=== PATIENT | female | born 1970 | race Caucasian/White ===

== ENCOUNTER 2023-05-16 05:04 | Day surgery (SDC) | payer OTHER ==
[2023-05-14 16:51] VITALS: BMI 25.6
[2023-05-16 11:24] VITALS: TEMP 97.8
[2023-05-16 12:03] VITALS: BP 116/60; PULSE 62; RESP 18
== END 2023-05-16 12:10 | disposition home or self-care (01) ==
LOC: JASU-ENDO 05:04
PROVIDERS: ATTEND Internal Medicine Gastroenterology
PROC: 0DJD8ZZ Inspection of Lower Intestinal Tract, Via Natural or Artificial Opening Endoscopic (ICD-10-PCS; principal; 2023-05-16 10:30)
DX: Z12.11 Encounter for screening for malignant neoplasm of colon (principal)